=== PATIENT | female | born 1990 | race African-American/Black ===

== ENCOUNTER 2021-10-17 16:24 | Emergency (ER) | payer OTHER ==
[2021-10-17 17:36] LABS: HEMOGLOBIN 7.1 gm/dl (12.3-15.3); RED BLOOD COUNT 3.25 M/UL (4.00-5.10); WHITE BLOOD COUNT 4.3 K/UL (4.5-11.0)
[2021-10-17 17:54] LABS: BUN/CREATININE RATIO 11 (0-10)
[2021-10-18] MEDS ORDERED: IRON325 M1 PO (00:21)
== END 2021-10-18 00:35 | disposition home or self-care (01) ==
LOC: ER1 16:24
PROVIDERS: Physician Assistant Medical
DX: R07.9 Chest pain, unspecified (principal); D64.9 Anemia, unspecified; Z20.822 Contact with and (suspected) exposure to COVID-19
CPT/HCPCS: 71045; 80053; 82550; 82553; 83874; 84484; 84703; 85025; 85379; 85652; 86140; 93005; Q9967; U0002

== ENCOUNTER 2022-01-18 14:59 | Emergency (ER) | payer OTHER ==
[~2022-01-18 14:59] MED LIST: IRON325 M1 PO
[2022-01-18] MEDS ORDERED: MEDROL DOSEPAK 24 MG PO (18:18)
== END 2022-01-18 19:19 | disposition home or self-care (01) ==
LOC: ER1 14:59
DX: M54.41 Lumbago with sciatica, right side (principal)
CPT/HCPCS: 96372; 99283; J1100; J1885